=== PATIENT | male | born 1995 | race Caucasian/White ===

== ENCOUNTER 2021-11-12 17:22 | Emergency (ER) | payer OTHER, SELFPAY ==
[2021-11-12 17:31] VITALS: BP 135/55; PULSE 128; RESP 20; TEMP 38.9; O2SAT 97
--- NOTE | 2021-11-12 17:32 | ED.URI ---
HPI - URI/Sore Throat General Chief Complaint: Upper Respiratory Infection Stated Complaint: Fever/Cough Time Seen by Provider: 11/12/21 17:42 Source: patient and RN notes reviewed Mode of arrival: ambulatory Limitations: no limitations History of Present Illness HPI Narrative: 26-year-old male presents with concern for 2-day history of fever, body aches, chills, cough. Reports he had to leave work early today from being ill. He denies shortness of breath, nausea, vomiting, diarrhea. Reports he has been taking DayQuil, NyQuil, ibuprofen. MD elicited complaint: fever and cough Review of Systems Review of Systems: CONSTITUTIONAL: Reports malaise, chills, sweats, fever. EYES: Denies visual changes, redness, or discharge. ENT: Reports rhinorrhea, congestion. Denies sinus pain, otalgia and sore throat. CARDIOVASCULAR: Denies chest pain, palpitations, or edema. RESPIRATORY: Reports cough. Denies dyspnea. GASTROINTESTINAL: Denies abdominal pain, nausea, vomiting, diarrhea SKIN: Denies rash or itching. MUSCULOSKELETAL: Reports myalgia. NEUROLOGIC: Denies headache. All systems reviewed & are unremarkable except as noted in HPI and below PMFSH Comments At time of signature, agree with nursing past medical, surgical, social and family history. There is no relevant family history pertinent to the presenting complaint Exam Narrative: GENERAL: Nontoxic-appearing and in no acute distress. HEAD: Normocephalic EYES: PERRLA, conjunctivae clear ENT: Nares clear, clear discharge. Mucous membranes moist. TM pearly tran with sharp light reflex bilaterally; no tragal tenderness. Oropharynx not erythematous without lesions. Tonsils not enlarged and without exudate, no drooling, no hoarseness, no trismus, uvula midline. NECK: Supple. No lymphadenopathy CHEST: Clear to auscultation, breath sounds equal. No wheezing, rhonchi, rales, or stridor. No respiratory distress, speaks in full sentences. HEART: Regular rate and rhythm. No murmur heard. SKIN: Warm, dry, no rash. NEURO: Alert and oriented x3. PSYCH: Normal mood and affect Course Course Emergency Course: Patient is aware of diagnosis, understands and agrees to treatment plan. Anticipatory guidance given. Patient agrees to follow-up as directed and is aware of reasons to seek care at the emergency department. Portions of this record may have been created with voice recognition software Level of Care: Express Care Visit Vital Signs Vital signs: Vital Signs Temperature 102.0 F H 11/12/21 17:31 Pulse Rate 128 H 11/12/21 17:31 Respiratory Rate 20 11/12/21 17:31 Blood Pressure 135/55 L 11/12/21 17:31 Pulse Oximetry 97 11/12/21 17:31 Temperature 102.0 F H 11/12/21 17:31 Pulse Rate 128 H 11/12/21 17:31 Respiratory Rate 20 11/12/21 17:31 Blood Pressure 135/55 L 11/12/21 17:31 Pulse Oximetry 97 11/12/21 17:31 Reviewed. MDM - URI/Sore Throat MDM Narrative Medical decision making narrative: Differential diagnosis considered: Lucas virus, strep pharyngitis, allergic rhinitis, upper respiratory tract infection, sinusitis, rhinosinusitis, nasopharyngitis. viral pharyngitis, otitis media, otitis externa, pneumonia, bronchitis, viral cough syndrome, viral syndrome, and influenza. Exam findings show no acute concerns or changes; patient is non-toxic appearing and is in no distress. Patient is appropriate for outpatient treatment and follow-up. Lab Data Attestation: I reviewed the patient's lab results. Labs: Influenza A Screen Positive Reference Range: Negative Influenza B Screen Negative Reference Range: Negative Critical Care Time Critical Care Time Critical Care Time: No Discharge Plan Discharge Clinical Impression: Influenza A Patient Disposition: Home, Self-Care Condition: Stable Instructions: Influenza (ED) Additional Instr
== END 2021-11-12 17:52 | disposition home or self-care (01) ==
PROVIDERS: Emergency Provider Nurse Practitioner
DX: J10.1 Influenza due to other identified influenza virus with other respiratory manifestations (principal)
CPT/HCPCS: 87804; 99213; G0463

== ENCOUNTER 2022-02-27 18:33 | Emergency (ER) | payer OTHER, SELFPAY ==
[2022-02-27 18:40] VITALS: BP 131/74; PULSE 87; RESP 18; TEMP 36.8; O2SAT 100
--- NOTE | 2022-02-27 19:14 | ED.GENADULT ---
HPI - General Adult General Chief complaint: Wound/Laceration Stated complaint: Laceration to Finger Source: patient Mode of arrival: ambulatory Limitations: no limitations History of Present Illness HPI narrative: Patient presents for evaluation of laceration to the fourth digit of the right hand that occurred just prior to arrival. He indicates he was holding a glass milk jug and was attempting to pick up attendant another when the first slipped. He attempted to catch it causing be glass to shattered in the process. He denies loss of range of motion in the affected digit. No paresthesias. He rates his pain 2 out of 10 in severity, without descriptive quality. He is right-hand dominant. He does not smoke. He is not diabetic. Last tetanus approximately 3 years ago. No additional complaints or concerns. Related Data Allergies Allergy/AdvReac Type Severity Reaction Status Date / Time No Known Allergies Allergy Verified 02/27/22 18:48 Review of Systems Review of Systems: CONSTITUTIONAL: Denies fever, chills, or sweats. EYES: Denies visual changes, redness, or discharge. ENT: Denies rhinorrhea, congestion, sore throat, or otalgia. CARDIOVASCULAR: Denies chest pain, palpitations, or edema. RESPIRATORY: Denies cough or dyspnea. GASTROINTESTINAL: Denies abdominal pain, nausea, vomiting, or diarrhea. GENITOURINARY: Denies dysuria or hematuria. SKIN: Reports laceration of the fourth digit of the right hand MUSCULOSKELETAL: Denies back pain, joint pain, or myalgia. NEUROLOGIC: Denies headache, numbness, dizziness, or weakness. PSYCHIATRIC: Denies anxiety or depression. [facility] Past Medical History Medical History No pertinent past medical history Surgical History Surgical History No pertinent past surgical history Family History Family History Mother Family history non-contributory Social History Social History (Updated 02/27/22 @ 19:17 by KARTHIK Simmons, ) Alcohol intake: current Alcohol use details: Social Living arrangements: with family Additional occupation/education comments: Works with [employer] Gender identity (if verbalized by the patient): Male Sexual Orientation (if Verbalized by the Patient): Straight or Heterosexual Spiritual care concerns: No Exam Narrative: GENERAL: Well-appearing, well-nourished, and in no acute distress. HEAD: Normocephalic, atraumatic. EYES: PERRLA and EOMI. ENT: Nares clear, no rhinorrhea or epistaxis. Mucous membranes moist. Oropharynx without tonsillar hypertrophy exudate or other lesions. Bilateral TMs pearly tran nonbulging NECK: Supple. No adenopathy or masses. No carotid bruits or JVD CHEST: Clear to auscultation. No respiratory distress. No wheezes rales or rhonchi HEART: Regular rate and rhythm. No murmur heard. Normal peripheral pulses. ABDOMEN: Soft, nontender, nondistended, normal active bowel sounds. EXTREMITIES: Normal range of motion. No edema. SKIN: Approximately 1.2 cm linear laceration in a transverse formation the palmar aspect of the middle phalanx of the fourth digit of the right hand NEURO: No focal deficits. Alert and oriented x3. PSYCH: Normal mood and affect. Course Course Emergency Course: This is a 26-year-old male who presented for evaluation of laceration to the fourth digit of the right hand. His hands were visibly soiled and I recommended closure with sutures. He declined. Will be used to approximate the laceration. I told him based upon location of wound and visible contamination it would be higher risk for infection. He verbalized understanding would like to proceed with Dermabond treatment. I thoroughly cleaned his right hand and approximated the laceration with Dermabond. Finger splint was applied. Will discharge with cephalexin. He should fo
== END 2022-02-27 19:15 | disposition home or self-care (01) ==
PROVIDERS: Emergency Provider Nurse Practitioner
DX: S61.214A Laceration without foreign body of right ring finger without damage to nail, initial encounter (principal); W25.XXXA Contact with sharp glass, initial encounter
CPT/HCPCS: 12001; 99213; G0463

== ENCOUNTER 2023-09-28 14:59 | Outpatient (CLI) | payer OTHER, SELFPAY ==
--- NOTE | ~2023-09-28 | XR_ITS ---
[id number] 09/28/2023 15:11 Indication: Chronic neck pain. Procedure: 4 view cervical spine Comparison: No prior studies for comparison. Findings: There is straightening of cervical lordosis. Vertebral body heights are maintained. No significant disc narrowing. No prevertebral soft tissue swe lling. No acute fracture or traumatic malalignment. There is mild multilevel uncinate hypertrophy. Dede ng apices are unremarkable. Impression: 1: Mild cervical spondylosis. Reviewed, dictated and finalized at location A. Impression: 1: Mild cervical spondylosis.
== END 2023-09-28 15:00 | disposition home or self-care (01) ==
PROVIDERS: PCP Nurse Practitioner Adult Health; Visit Provider Nurse Practitioner Adult Health
DX: M43.02 Spondylolysis, cervical region (principal); G89.29 Other chronic pain
CPT/HCPCS: 72040